=== PATIENT | female | born 1990 | race African-American/Black ===

== ENCOUNTER 2016-11-21 07:42 | Emergency (ER) | payer SELFPAY ==
[~2016-11-21] VITALS: Ht 162.6 cm; Wt 70.0 kg
[~2016-11-21 07:42] MED LIST: MACR100C PO; PHEN-426 PO; PYRI200T4 PO
[2016-11-21 07:44] VITALS: BP 134/68; PULSE 74; RESP 14; TEMP 98.7; O2SAT 98
[2016-11-21] MEDS ORDERED: IBUP800T23 PO (08:39)
[2016-11-21] MEDS ORDERED: MAGICPED SWISH-SPIT (08:39)
--- NOTE | 2016-11-21 08:39 | PD ---
HPI Chief Complaint: ENT Complaint Time Seen by Provider: 08:32 Travel History International Travel<30 days: No Contact w/Intl Traveler<30days: No Traveled to known affect area: No History of Present Illness HPI 26-year-old female presents to the emergency Department with complaint of sore throat 3 days. Reports fever up to 102.0. Reports occasional cough. Denies lump in throat, difficulty swallowing, unusual drooling. Reports painful swallowing. Denies voice is different. Reports pain to bilateral cervical lymph node areas. Reports headache. Denies vomiting, abdominal pain. Exposed to sore throat by a couple coworkers recently. Has been taking Tylenol and ibuprofen for symptom management. No known allergies. Has no other medical complaints. No other modifying factors or associated signs and symptoms. PFSH Past Medical History Immunizations Current: Yes ?: Not LMP: DEPO : 1 Para: 1 Social History Alcohol Use: No Tobacco Use: No Substance Use: No Allergies-Medications (Allergen,Severity, Reaction): Coded Allergies: No Known Allergies (Unverified , 11/21/16) Reported Meds & Prescriptions Reported Meds & Active Scripts Active Ibuprofen 800 Mg Tab 800 Mg PO Q6HR PRN Magic Mouthwash Pediatric/Adult Liq (Lidocaine/Diphenhydr/Alum/Mg/Simeth) 60 Ml Susp 5 Ml SWISH-SPIT Q3HR PRN Each 5mL contains: Diphenydramine 4.5mg, Viscous Lidocaine 2% 10mg, Maalox Advanced Regular Strength 2.7ml Pyridium (Phenazopyridine HCl) 100 Mg Tab 100 Mg PO Q8HR PRN Macrobid (Nitrofurantoin Macrocrystals) 100 Mg Cap 100 Mg PO BID 10 Days Pyridium (Phenazopyridine HCl) 200 Mg Tab 200 Mg PO Q8HR PRN Review of Systems Except as stated in HPI: all other systems reviewed are Neg Physical Exam Narrative GENERAL: Well-nourished, well-developed female patient, in no acute distress; afebrile, nontoxic-appearing SKIN: Warm and dry. No rash. HEAD: Atraumatic. Normocephalic. EYES: Pupils equal and round at 3 mm with brisk reaction. No scleral icterus. No injection or drainage. PERRLA. ENT: Mucosa pink and dry. Pharynx with 1+ tonsils; with erythema and minimal exudate noted. No Uvular edema. No uvular, palatal, or tonsillar deviation. Airway patent. Voice is normal. EARS: Bilateral pinnae and external canals appear within normal limits. Bilateral tympanic membranes without erythema, dullness or perforation.. NECK: Trachea midline. Anterior cervical tenderness without lymphadenopathy. CARDIOVASCULAR: Regular rate and rhythm. No murmur appreciated. RESPIRATORY: No accessory muscle use. Clear to auscultation. Breath sounds equal bilaterally. GASTROINTESTINAL: Flat. MUSCULOSKELETAL: No obvious deformities. No clubbing. No cyanosis. No edema. NEUROLOGICAL: Awake and alert. Oriented 3. No obvious cranial nerve deficits. Motor grossly within normal limits. Normal speech. Moves all extremities. PSYCHIATRIC: Appropriate mood and affect; insight and judgment normal. Data Data Last Documented VS Vital Signs Date Time Temp Pulse Resp B/P Pulse Ox O2 Delivery O2 Flow Rate FiO2 11/21/16 07:56 80 19 11/21/16 07:44 98.7 134/68 98 Room Air Orders Group A Rapid Strep Screen (11/21/16 08:32) Strep Culture (Group A) (11/21/16 08:35) [facility] Medical Decision Making Medical Screen Exam Complete: Yes Emergency Medical Condition: Yes Medical Record Reviewed: Yes Differential Diagnosis Viral pharyngitis, exudative pharyngitis, strep pharyngitis, less likely peritonsillar abscess Narrative Course 26-year-old female with sore throat 3 days. Patient is afebrile and nontoxic- appearing. Reports fever up to 102.0. Has recently been exposed to strep throat. Using Centor score for management of sore throat the patient's risk of GABHS pharyngitis is: Score 3=risk of GABHS 28-35%=perform rapid strep swab. Rapid strep ordered. I offered the patient a nonnarcotic for pain and she declined this time. 0855: Rapid strep negative. Ibuprofen and Magic mouthwash prescribed for home. Instructed patient to follow up with primary care provider. Patient verbalizes understanding and agreement with treatment plan. Patient is medically cleared and stable for discharge. Discussed reasons to return to the emergency department. Patient agrees with treatment plan. The patients vital signs are stable and the patient is stable for outpatient follow-up and treatment. Patient discharged home, stable and in no acute distress. Diagnosis Primary Impression: Viral pharyngitis Referrals: Primary Care Physician Patient Instructions: General Instructions, Pharyngitis (ED) Departure Forms: Tests/Procedures, Work Release Enter return to work date: Nov 22, 2016 Additional Instructions: Get plenty of sleep/rest Rest your voice Drink plenty of fluids to prevent dehydration Use warm saltwater gargles to soothe throat pain Use an air humidifier/turn off ceiling fans Use throat lozenges as needed for sore throat Use ibuprofen or acetaminophen as needed to relieve pain and fever Follow-up with your primary care provider within 2-4 days Return immediately to the emergency department with worsening of symptoms Med/Other Pt SpecificInfo: Prescription(s) given Scripts Ibuprofen 800 Mg [id number] Mg PO Q6HR PRN (PAIN) #30 TAB Ref 0 Prov:Deirdre Santana 11/21/16 Scoknsfhpahufdb-Jsipsmpcj-Tuf-Alum-Simeth Liq (Magic Mouthwash Pediatric/Adult Liq)60 Ml Susp5 Ml SWISH-SPIT Q3HR PRN (SORE THROAT) #60 ML Ref 0 Each 5mL contains: Diphenydramine 4.5mg, Viscous Lidocaine 2% 10mg, Maalox Advanced Regular Strength 2.7ml Prov:Deirdre Santana 11/21/16 Disposition: 01 DISCHARGE HOME Condition: Stable Deirdre Santana Nov 21, 2016 08:39
== END 2016-11-21 09:00 | disposition home or self-care (01) ==
LOC: NEPK 07:42
DX: J02.8 Acute pharyngitis due to other specified organisms (principal); B97.89 Other viral agents as the cause of diseases classified elsewhere; R50.9 Fever, unspecified; R05 Cough; R51 Headache
CPT/HCPCS: 87081; 87880; 99283

== ENCOUNTER 2016-12-11 15:38 | Emergency (ER) | payer SELFPAY ==
[~2016-12-11] VITALS: Ht 162.6 cm; Wt 64.0 kg
[~2016-12-11 15:38] MED LIST changes: +IBUP800T23 PO; +MAGICPED SWISH-SPIT
[2016-12-11 15:39] VITALS: BP 126/75; PULSE 101; RESP 16; TEMP 99.6; O2SAT 98
--- NOTE | 2016-12-11 15:43 | PD ---
Physical Exam Date Seen by Provider: Dec 11, 2016 Time Seen by Provider: 15:42 Narrative 26 YOBF C/O SPIDER BITE R FOREARM SAT. 01/04 VS REVIEWED WAITING FOR BED PLACEMENT Data Data Last Documented VS Vital Signs Date Time Temp Pulse Resp B/P Pulse Ox O2 Delivery O2 Flow Rate FiO2 12/11/16 15:39 99.6 101 16 126/75 98 MDM Supervised Visit with PATY: Ac Soto Dec 11, 2016 15:43
[2016-12-11] MEDS ORDERED: TETANUS/DIPHTHERIA TOXOID ADULT 0.5 ML VIAL IM ONE (18:45)
[2016-12-11] MEDS ORDERED: IBUPROFEN 800 MG TAB PO ONE (18:45)
[2016-12-11] MEDS ORDERED: LIDOCAINE HCL 1% 50 ML VIAL INFIL ONE (18:45)
[2016-12-11] MEDS ORDERED: CEPH-460 PO (18:47)
[2016-12-11] MEDS ORDERED: IBUP800T23 PO (18:47)
[2016-12-11] MEDS ORDERED: BACT800T5 PO (18:47)
--- NOTE | 2016-12-11 18:47 | PD ---
HPI Chief Complaint: Skin Problem Time Seen by Provider: 18:46 Travel History International Travel<30 days: No Contact w/Intl Traveler<30days: No Traveled to known affect area: No History of Present Illness HPI 26-year-old female presents emergency Department with complaint of an abscess to her right wrist/distal forearm area since Thursday. Denies fever, vomiting. Denies IV drug use. Has been trying a topical cream for symptomatic management. Unknown tetanus status. Symptoms are mild in severity. No known allergies. Has no other medical complaints. No other modifying factors or associated signs and symptoms. PFSH Past Medical History Immunizations Current: Yes : 1 Para: 1 Social History Alcohol Use: No Tobacco Use: No Substance Use: No Allergies-Medications (Allergen,Severity, Reaction): Coded Allergies: No Known Allergies (Unverified , 11/21/16) Reported Meds & Prescriptions Reported Meds & Active Scripts Active Ibuprofen 800 Mg Tab 800 Mg PO Q6HR PRN Bactrim DS (Sulfamethoxazole-Trimethoprim) 800-160 Mg Tab 1 Tab PO BID 10 Days Keflex (Cephalexin) 500 Mg Cap 500 Mg PO Q6H 10 Days Ibuprofen 800 Mg Tab 800 Mg PO Q6HR PRN Magic Mouthwash Pediatric/Adult Liq (Lidocaine/Diphenhydr/Alum/Mg/Simeth) 60 Ml Susp 5 Ml SWISH-SPIT Q3HR PRN Each 5mL contains: Diphenydramine 4.5mg, Viscous Lidocaine 2% 10mg, Maalox Advanced Regular Strength 2.7ml Pyridium (Phenazopyridine HCl) 100 Mg Tab 100 Mg PO Q8HR PRN Macrobid (Nitrofurantoin Macrocrystals) 100 Mg Cap 100 Mg PO BID 10 Days Pyridium (Phenazopyridine HCl) 200 Mg Tab 200 Mg PO Q8HR PRN Review of Systems Except as stated in HPI: all other systems reviewed are Neg Physical Exam Narrative GENERAL: Well-nourished, well-developed female patient, in no acute distress; low-grade fever 99.6, nontoxic-appearing SKIN: There is an indurated area to the right anterior distal forearm/wrist which measures about 3 cm in diameter. It is fluctuant; there is a small area of pointing but no drainage. There is a zone of inflammation around it but no lymphangitis. HEAD: Atraumatic. Normocephalic. EYES: Pupils equal and round. No scleral icterus. No injection or drainage. ENT: Mucosa pink and moist. Airway patent. NECK: Trachea midline. CARDIOVASCULAR: Regular rate. RESPIRATORY: No accessory muscle use. GASTROINTESTINAL: Flat. MUSCULOSKELETAL: No obvious deformities. No clubbing. No cyanosis. No edema. NEUROLOGICAL: Awake and alert. Oriented 3. No obvious cranial nerve deficits. Motor grossly within normal limits. Normal speech. PSYCHIATRIC: Appropriate mood and affect; insight and judgment normal. Data Data Last Documented VS Vital Signs Date Time Temp Pulse Resp B/P Pulse Ox O2 Delivery O2 Flow Rate FiO2 12/11/16 15:39 99.6 101 16 126/75 98 Orders Wound Culture And Gram Stain (12/11/16 18:45) Tetanus/Diphtheria Tox Adult (Tetanus/Di (12/11/16 18:45) Lidocaine 1% Inj (50 Ml) (Xylocaine 1% I (12/11/16 18:45) Ibuprofen (Motrin) (12/11/16 18:45) Cephalexin (Keflex) (12/11/16 19:00) Sulfamet-Trimeth Ds 800-160 Mg (Bactrim (12/11/16 19:00) MDM Medical Decision Making Medical Screen Exam Complete: Yes Emergency Medical Condition: Yes Medical Record Reviewed: Yes Differential Diagnosis Insect bite, abscess, folliculitis, cellulitis Narrative Course 25-year-old female with an abscess to her right distal forearm/wrist area. Denies IV drug use. Patient has low-grade fever of 99.6 earlier. She denies fever, vomiting. See Abhishek Rojas, PACs note for incision and drainage. Tetanus updated in the ER. Ibuprofen Keflex, Bactrim administered in the ER. Keflex, Bactrim, ibuprofen prescribed for home. Instructed patient to follow up with primary care provider. Patient verbalizes understanding and agreement with treatment plan. Patient is medically cleared and stable for discharge. Discussed reasons to return to the emergency department. Patient agrees with treatment plan. The patients vital signs are stable and the patient is stable for outpatient follow-up and treatment. Patient discharged home, stable and in no acute distress. Diagnosis Primary Impression: Abscess of forearm, right Referrals: [facility] Primary Care Physician Patient Instructions: Abscess (ED), Abscess Follow-up (ED), Abscess Incision and Drainage (ED), General Instructions Departure Forms: Tests/Procedures, Work Release Enter return to work date: Dec 13, 2016 Additional Instructions: Complete full course of antibiotics Warm compresses to the affected area Keep area clean and dry Ibuprofen or Tylenol as directed and as needed for pain and inflammation Follow-up with primary care provider Return to emergency department immediately with worsening of symptoms Med/Other Pt SpecificInfo: Prescription(s) given Scripts Ibuprofen 800 Mg [id number] Mg PO Q6HR PRN (PAIN) #30 TAB Ref 0 Prov:Deirdre Santana 12/11/16 Sulfamethoxazole-Trimethoprim (Bactrim DS)800-160 Mg Tab1 Tab PO BID 10 Days Ref 0 Prov:Deirdre Santana 12/11/16 Cephalexin (Keflex)500 Mg [id number] Mg PO Q6H 10 Days Ref 0 Prov:Deirdre Santana 12/11/16 Disposition: 01 DISCHARGE HOME Condition: Stable Deirdre Santana Dec 11, 2016 18:47
[2016-12-11] MEDS ORDERED: CEPHALEXIN MONOHYDRATE 500 MG CAP PO ONE (19:00)
[2016-12-11] MEDS ORDERED: SULFAMETHOXAZOLE-TRIMETHOPRIM DS 800-160 MG TAB PO ONE (19:00)
--- NOTE | 2016-12-11 19:20 | PD ---
Physical Exam Time Seen by Provider: 19:10 Data Data Last Documented VS Vital Signs Date Time Temp Pulse Resp B/P Pulse Ox O2 Delivery O2 Flow Rate FiO2 12/11/16 15:39 99.6 101 16 126/75 98 Orders Wound Culture And Gram Stain (12/11/16 18:45) Tetanus/Diphtheria Tox Adult (Tetanus/Di (12/11/16 18:45) Lidocaine 1% Inj (50 Ml) (Xylocaine 1% I (12/11/16 18:45) Ibuprofen (Motrin) (12/11/16 18:45) Cephalexin (Keflex) (12/11/16 19:00) Sulfamet-Trimeth Ds 800-160 Mg (Bactrim (12/11/16 19:00) MDM Medical Record Reviewed: Yes Supervised Visit with PATY: No Narrative Course I have been asked to perform incision and drainage on this patient's right arm abscess. The patient verbally consents. Wound culture performed. Procedures Procedure Narrative INCISION AND DRAINAGE OF ABSCESS: The area was prepped and was sterilely draped. A subcutaneous wheal of 1% Xylocaine with a total number 5 mL was used to anesthetize the area. The area was properly anesthetized. A [id number] scalpel was used to make a 1 -cm incision across the area of the abscess. Cultures were obtained. The abscess was drained an irrigated with normal saline. Diagnosis Primary Impression: Abscess of forearm, right Referrals: [facility] Primary Care Physician Patient Instructions: General Instructions, Abscess Incision and Drainage (ED) , Abscess (ED), Abscess Follow-up (ED) Departure Forms: Work Release, Enter return to work date: Tests/Procedures Additional Instruction: Complete full course of antibiotics Warm compresses to the affected area Keep area clean and dry Ibuprofen or Tylenol as directed and as needed for pain and inflammation Follow-up with primary care provider Return to emergency department immediately with worsening of symptoms Scripts Ibuprofen 800 Mg [id number] Mg PO Q6HR PRN (PAIN) #30 TAB Ref 0 Prov:Deirdre Santana 12/11/16 Sulfamethoxazole-Trimethoprim (Bactrim DS)800-160 Mg Tab1 Tab PO BID 10 Days Ref 0 Prov:Deirdre Santana 12/11/16 Cephalexin (Keflex)500 Mg [id number] Mg PO Q6H 10 Days Ref 0 Prov:IsraelkunalDeirdre ROBBINS 12/11/16 Disposition: 01 DISCHARGE HOME Condition: Stable Abhishek Rojas Dec 11, 2016 19:20
== END 2016-12-11 19:46 | disposition home or self-care (01) ==
LOC: NEPK 15:38
DX: L02.413 Cutaneous abscess of right upper limb (principal); A49.02 Methicillin resistant Staphylococcus aureus infection, unspecified site; Z23 Encounter for immunization
CPT/HCPCS: 10060; 86403; 87070; 87186; 87205; 90714; 96372

== ENCOUNTER 2017-08-25 22:22 | Emergency (ER) | payer SELFPAY ==
[~2017-08-25] VITALS: Ht 162.6 cm; Wt 65.0 kg
[~2017-08-25 22:22] MED LIST changes: +BACT800T5 PO; +CEPH-460 PO; +IBUP1TAB7 PO; -IBUP800T23 PO
[2017-08-25 22:35] VITALS: BP 124/66; PULSE 85; RESP 18; TEMP 98.6; O2SAT 100
--- NOTE | 2017-08-25 23:07 | PD ---
HPI Chief Complaint: Abdominal Pain Time Seen by Provider: 22:52 Travel History International Travel<30 days: No Contact w/Intl Traveler<30days: No Traveled to known affect area: No History of Present Illness HPI 26yo F with no PMH presents to the ED with c/o lower abdominal pain and vaginal discharge for 1 week. Said pain was intermittent and relieved with ibuprofen and warm compress. However, last ibuprofen was a few days ago because pt ran out of it. Had some nausea. Denies any fever, chest pain,sob, dysuria, hematuria, vaginal bleeding. Pt said pain is intermittent and worst with movement like walking. Vaginal discharge is clear but not normal for her and she has had bacterial vaginosis before. LMP 07/2017. PFSH Past Medical History Medical History: Denies Significant Hx Diminished Hearing: No Immunizations Current: Yes Tetanus Vaccination: Unknown Influenza Vaccination: No ?: Unknown LMP: 08/08/2017 : 1 Para: 1 Past Surgical History Surgical History: No Previous Surgery Social History Alcohol Use: No Tobacco Use: No Substance Use: No Allergies-Medications (Allergen,Severity, Reaction): Coded Allergies: No Known Allergies (Unverified Adverse Reaction, Unknown, 08/25/17) Reported Meds & Prescriptions Reported Meds & Active Scripts Active Ibuprofen 800 Mg Tab 800 Mg PO Q6HR PRN Bactrim DS (Sulfamethoxazole-Trimethoprim) 800-160 Mg Tab 1 Tab PO BID 10 Days Keflex (Cephalexin) 500 Mg Cap 500 Mg PO Q6H 10 Days Ibuprofen 800 Mg Tab 800 Mg PO Q6HR PRN Magic Mouthwash Pediatric/Adult Liq (Lidocaine/Diphenhydr/Alum/Mg/Simeth) 60 Ml Susp 5 Ml SWISH-SPIT Q3HR PRN Each 5mL contains: Diphenydramine 4.5mg, Viscous Lidocaine 2% 10mg, Maalox Advanced Regular Strength 2.7ml Pyridium (Phenazopyridine HCl) 100 Mg Tab 100 Mg PO Q8HR PRN Macrobid (Nitrofurantoin Macrocrystals) 100 Mg Cap 100 Mg PO BID 10 Days Pyridium (Phenazopyridine HCl) 200 Mg Tab 200 Mg PO Q8HR PRN Review of Systems Except as stated in HPI: all other systems reviewed are Neg Physical Exam Narrative GENERAL: 26yo F SKIN: Focused skin assessment warm/dry. HEAD: Atraumatic. Normocephalic. EYES: Pupils equal and round. No scleral icterus. No injection or drainage. ENT: No nasal bleeding or discharge. Mucous membranes pink and moist. NECK: Trachea midline. No JVD. CARDIOVASCULAR: Regular rate and rhythm. No murmur appreciated. RESPIRATORY: No accessory muscle use. Clear to auscultation. Breath sounds equal bilaterally. GASTROINTESTINAL: Abdomen soft, non-tender, nondistended. No RLQ ttp. PELVIC: +Whitish/clear vaginal discharge. No CMT or adnexal tenderness bilaterally. MUSCULOSKELETAL: No obvious deformities. No clubbing. No cyanosis. No edema. NEUROLOGICAL: Awake and alert. No obvious cranial nerve deficits. Motor grossly within normal limits. Normal speech. PSYCHIATRIC: Appropriate mood and affect; insight and judgment normal. Data Data Last Documented VS Vital Signs Date Time Temp Pulse Resp B/P (MAP) Pulse Ox O2 Delivery O2 Flow Rate FiO2 08/25/17 22:35 98.6 85 18 124/66 (85) 100 Orders Orders Gc And Chlamydia Pcr (08/25/17 23:01) Wet Prep Profile (08/25/17 23:01) Urinalysis - C+S If Indicated (08/25/17 23:01) Ed Urine Pregnancytest Poc (08/25/17 23:01) Ketorolac Inj (Toradol Inj) (08/25/17 23:15) Azithromycin Powd Pack (Zithromax Powd P (08/25/17 23:30) Ceftriaxone Inj (Rocephin Inj) (08/25/17 23:30) Lidocaine 1% Inj (50 Ml) (Xylocaine 1% I (08/25/17 23:30) Labs Laboratory Tests Test 08/25/17 23:15 Urine Color LIGHT-YELLOW Urine Turbidity CLEAR Urine pH 6.0 Urine Specific [place] 1.021 Urine Protein NEG mg/dL Urine Glucose (UA) NEG mg/dL Urine Ketones NEG mg/dL Urine Occult Blood TRACE Urine Nitrite NEG Urine Bilirubin NEG Urine Urobilinogen LESS THAN 2.0 MG/DL Urine Leukocyte Esterase NEG Urine WBC LESS THAN 1 /hpf Urine Squamous Epithelial Cells 2 /hpf Urine Mucus FEW /lpf Microscopic Urinalysis Comment CULT NOT INDICATED Clue Cells (Wet Prep) NONE SEEN Vaginal Trichomonas (Wet Prep) NONE SEEN Vaginal Yeast (Wet Prep) NONE SEEN MDM Medical Decision Making Medical Screen Exam Complete: Yes Emergency Medical Condition: Yes Differential Diagnosis Bacterial vaginosis vs. trichomoniasis vs. UTI vs. Narrative Course 26yo F with vaginal discharge and lower abdominal pain. Pt had nausea but denies any nausea now. Pt has no abdominal tenderness on exam. Pelvic exam reveals white/clear vaginal discharge so wet prep sent. Pt is very well appearing but is sexually active and wants to be treated empirically for gonorrhea and chlamydia so will give it. UA showed WBC less than 1. Culture not indicated. Urine negative. Wet prep negative. Pt given toradol and said she feels better. Still with no abdominal pain on exam. Return precautions given. Diagnosis Primary Impression: Abdominal pain Qualified Codes: R10.9 - Unspecified abdominal pain Patient Instructions: General Instructions Departure Forms: Tests/Procedures Additional Instructions: Please follow up with your primary care physician in 2-3 days. Return to the ED if you have worsening symptoms. Med/Other Pt SpecificInfo: Prescription(s) given Scripts Acetaminophen (Tylenol) 325 Mg Tab 650 MG PO Q6H Y for PAIN SCALE 1 TO 4, #20 TAB 0 Refills Prov: Kayleen Farmer DO 08/26/17 Disposition: 01 DISCHARGE HOME Condition: Stable Kayleen Farmer DO August 25, 2017 23:07
[2017-08-25] MEDS ORDERED: KETOROLAC TROMETHAMINE 60 MG/2 ML (IM) VIAL IM ONE (23:15)
[2017-08-25] MEDS ORDERED: AZITHROMYCIN PWD FOR SUSP 1 GM PACKET PO ONE (23:30)
[2017-08-25] MEDS ORDERED: cefTRIAXone 250 MG VIAL IM ONE (23:30)
[2017-08-25] MEDS ORDERED: LIDOCAINE HCL 1% 50 ML VIAL IM ONE (23:30)
[2017-08-25 23:44] LABS: BILIRUBIN, URINE NEG (NEG); BLOOD, URINE TRACE (NEG); GLUCOSE,URINE NEG (NEG); KETONE, URINE NEG (NEG); MUCUS URINE FEW /lpf (OCC); NITRITE,URINE NEG (NEG); SQUAMOUS EPITHELIAL CELL URINE 2 /hpf (0-5); URINE COLOR LIGHT-YELLOW (YELLW/STRAW); URINE LEUKOCYTE ESTERASE NEG (NEG)
[2017-08-26] MEDS ORDERED: TYLE325T PO (00:27)
== END 2017-08-26 00:45 | disposition home or self-care (01) ==
LOC: NEPD 22:22
DX: R10.30 Lower abdominal pain, unspecified (principal); N89.8 Other specified noninflammatory disorders of vagina
CPT/HCPCS: 81001; 84703; 87210; 87491; 87591; 96372; 99284; J0696; J1885